=== PATIENT | male | born 1950 | race African-American/Black ===

== ENCOUNTER 2018-07-26 11:01 | Emergency (ER) | payer MEDICARE, MEDICAID ==
[~2018-07-26] VITALS: Ht 175.3 cm; Wt 118.2 kg
[~2018-07-26 11:01] MED LIST: ALPR0.5T8 PO; ASPI81 PO; ATOR40TA28 PO; CARV6 PO; FLUT16H NASAL; FURO20 PO; HYDR-3971 PO
[2018-07-26] MEDS ORDERED: BUDE10.2 IH (11:28)
[2018-07-26] MEDS ORDERED: ADV250 IH (11:28)
[2018-07-26] MEDS ORDERED: ALBUTEROL SULFATE 2.5 MG/0.5 ML NEB SOLUTION NEB ONE (12:30)
[2018-07-26] MEDS ORDERED: IPRATROPIUM BROMIDE 0.5 MG/2.5 ML NEB SOLUTION NEB ONE (12:30)
[2018-07-26] MEDS ORDERED: ALBUTEROL SULFATE HFA 90 MCG/PUFF 8 GM INHALER IH ONE ×2 (13:07→13:15)
[2018-07-26 13:45] VITALS: BP 124/79
== END 2018-07-26 14:06 | disposition home or self-care (01) ==
LOC: EMS 11:03
DX: J44.9 Chronic obstructive pulmonary disease, unspecified (principal); J06.9 Acute upper respiratory infection, unspecified; I11.0 Hypertensive heart disease with heart failure; I50.9 Heart failure, unspecified; E78.00 Pure hypercholesterolemia, unspecified; F17.210 Nicotine dependence, cigarettes, uncomplicated; Z79.82 Long term (current) use of aspirin
CPT/HCPCS: 94640; J3535